=== PATIENT | female | born 1975 | race Caucasian/White ===

== ENCOUNTER → 2021-11-14 | Outpatient (CLI) | payer BC ==
[2021-11-15 11:38] LABS: Pineapple IgE <0.10 kU/L (<0.10); Pineapple IgE Class CLASS 0
[2021-11-15 15:05] LABS: Peanut IgE <0.10 kU/L; Soybean IgE <0.10 kU/L
== END | disposition home or self-care (01) ==
LOC: LABWHC1 13:31
PROVIDERS: ATTEND Allergy & Immunology
DX: T78.3XXA Angioneurotic edema, initial encounter (principal)
CPT/HCPCS: 36415; 86003

== ENCOUNTER → 2024-06-01 | Outpatient (CLI) | payer BC ==
[2024-06-01 14:52] VITALS: BP 159/91; PULSE 76; RESP 16; TEMP 98
--- NOTE | 2024-06-01 15:14 | P.SLEEP ---
History of Present Illness H&P Date: 06/01/24 Chief Complaint: TOM This is a 48-year-old female patient was referred to me due to concerns of sleep apnea. The patient was having some palpitations and she has undergone a cardiac workup with Dr. Mckeon and following that the patient was referred to me for sleep apnea evaluation. She has excessive fatigue and daytime sleepiness and her current Collins score is at 17 out of 24. She is raising 2 children, both have special needs and those children are autistic and they are severely impaired. As such, she has to occasionally get up in the middle of the night and at times severe needs. She tries to go to bed at around 11 PM and she wakes up at 6:30 AM in the morning. She is exhausted and tired throughout the day. 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 She feels excessively fatigued and sleepy during those meetings. She does not fall asleep during the day. She does not fall asleep while driving. She struggles to keep herself awake. No sleep paralysis. No hallucinations. No cataplexy. He drinks 30 ounces tea and Coca-Cola. No caffeine intake. No substance abuse. No head trauma. No stroke. No congestion heart failure. She has hypertension and she is currently on a combination of Toprol and losartan. No nightmares. No anxiety or depression. No restlessness in lower extremities. No sleepwalking. No sleep talking. No grinding. No nighttime chest pain or shortness of breath. She has history of snoring. Denies waking up choking and gasping for air. No previous sleep apnea evaluation. Review of Systems Constitutional: Reports daytime sleepiness, Reports fatigue, Reports weight gain Eyes: denies as per HPI, denies blurred vision, denies bulging eye, denies decreased vision, denies diplopia, denies discharge, denies dry eye, denies irritation, denies itching, denies pain, denies photophobia, denies loss of peripheral vision, denies loss of vision, denies tunnel vision/blind spots Ears: deny: decreased hearing, ear discharge, earache, tinnitus Ears, nose, mouth and throat: Reports as per HPI Breasts: absent: as per HPI, change in shape, gynecomastia, masses, nipple discharge, pain, skin changes, swelling Breasts: Reports as per HPI Cardiovascular: Reports as per HPI Respiratory: Reports snoring Gastrointestinal: Reports as per HPI Genitourinary: Reports as per HPI Menstruation: Reports as per HPI Musculoskeletal: Reports as per HPI Musculoskeletal: absent: ankle pain, ankle stiffness, ankle swelling, as per HPI, elbow pain, elbow stiffness, elbow swelling, foot pain, foot stiffness, foot swelling, hand pain, hand stiffness, hand swelling, hip pain, hip stiffness, hip swelling, knee pain, knee stiffness, knee swelling, shoulder pain, shoulder stiffness, shoulder swelling, wrist pain, wrist stiffness, wrist swelling Integumentary: Reports as per HPI Neurological: Reports as per HPI Psychiatric: Reports as per HPI, Reports sleep disturbances Endocrine: Reports as per HPI, Reports fatigue Hematologic/Lymphatic: Reports as per HPI Allergic/Immunologic: Reports as per HPI Past Medical History Past Medical History: Asthma, Hypertension Additional Past Medical History / Comment(s): Sinus headaches History of Any Multi-Drug Resistant Organisms: None Reported Past Surgical History: Orthopedic Surgery Additional Past Surgical History / Comment(s): laproscopy for IVF Past Anesthesia/Blood Transfusion Reactions: No Reported Reaction, Motion Sickness Past Psychological History: No Psychological Hx Reported Smoking Status: Never smoker Past Alcohol Use History: None Reported Past Drug Use History: None Reported - Past Family History Father Family Medical History: CVA/TIA, Neurologic Disorder Additional Family Medical History / Comment(s): parkinson Mother Family Medical History: Cancer, Congestive Heart Failure (CHF), Diabetes Mellitus, Hypertension, Rheumatoid Arthritis (RA) Brother(s) Family Medical History: Diabetes Mellitus, Hypertension, Thyroid Disorder Sister(s) Family Medical History: Hypertension Additional Family Medical History / Comment(s): restless legs Medications and Allergies Home Medications Medication Instructions Recorded Confirmed Type Losartan Potassium 100 mg PO DAILY 06/01/24 06/01/24 History Metoprolol Succinate (ER) [Toprol 5 mg PO DAILY 06/01/24 06/01/24 History Xl] Physical Exam Vitals: Vital Signs Temp Pulse Resp BP Pulse Ox 06/01/24 14:48 98.0 F 76 16 159/91 96 Intake and Output 06/01/24 06/01/24 06/01/24 06:59 14:59 22:59 Other: Weight 147.871 kg Patient is morbidly obese with a body mass index of 52.6. The patient appeared well nourished and normally developed. Vital signs as documented. Head exam is unremarkable. No scleral icterus or corneal arcus noted. Neck is without jugular venous distension, thyromegaly, or carotid bruits. Carotid upstrokes are brisk bilaterally. The patient is a Mallampati class IV with significant crowding of the posterior oropharynx. Lungs are clear to auscultation and percussion. Cardiac exam reveals the PMI to be normally sized and situated. Rhythm is regular. First and second heart sounds normal. No murmurs, rubs or gallops. Abdominal exam reveals normal bowel sounds, no masses, no organomegaly and no aortic enlargement. The abdominal organs cannot be accurately palpated due to her morbid obesity. Extremities are nonedematous and both femoral and pedal pulses are normal. Examination of the skin revealed no evidence of significant rashes, suspicious appearing nevi or other concerning lesions. Neurologically, the patient is awake and alert and the patient does not have any focal neurological deficit. Cranial nerves are essentially intact. Assessment and Plan Plan: Chronic hypersomnia with an Collins score of 17, high clinical suspicion for obstructive sleep apnea. Snoring Sleep fragmentation Mallampati class IV with significant crowding of posterior pharynx Hypertension Palpitations, currently on beta-blockers Plan High clinical suspicion for obstructive sleep apnea. Proceed with a home sleep study to establish a diagnosis. Following that, the patient would likely need his CPAP titration in preparation for CPAP therapy show the diagnosis of sleep apnea is confirmed. Encourage weight loss. Maintain good sleep hygiene measures. Will continue to follow. Sleep Note - Sleep Data ESS Total: 17 - Sleep Note Sleep Note: Temperature: 98.0 F Pulse Rate: 76 Respiratory Rate: 16 Blood Pressure: 159/91 SpO2: 96 Height: 5 ft 6 in Weight: 147.871 kg BMI: Neck Circumference: 18.5
== END ==
LOC: 3 N SLEEP 14:15
PROVIDERS: ATTEND Internal Medicine Critical Care Medicine
DX: R06.83 Snoring (principal); G47.10 Hypersomnia, unspecified; G47.8 Other sleep disorders; I10 Essential (primary) hypertension; R00.2 Palpitations; J39.2 Other diseases of pharynx; Z79.899 Other long term (current) drug therapy
CPT/HCPCS: 99211

== ENCOUNTER → 2024-06-03 | Outpatient (CLI) | payer BC ==
--- NOTE | 2024-06-20 23:10 | P.PCN ---
Date of Procedure: 06/01/24 Operative Findings: Home sleep study report Date of service is 06/01/2024 Present history This is a 48-year-old female patient was referred to me due to concerns of sleep apnea. The patient was having some palpitations and she has undergone a cardiac workup with Dr. Mckeon and following that the patient was referred to me for sleep apnea evaluation. She has excessive fatigue and daytime sleepiness and her current Carlton score is at 17 out of 24. She is raising 2 children, both have special needs and those children are autistic and they are severely impaired. As such, she has to occasionally get up in the middle of the night and at times severe needs. She tries to go to bed at around 11 PM and she wakes up at 6:30 AM in the morning. She is exhausted and tired throughout the day. 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 She feels excessively fatigued and sleepy during those meetings. She does not fall asleep during the day. She does not fall asleep while driving. She struggles to keep herself awake. No sleep paralysis. No hallucinations. No cataplexy. He drinks 30 ounces tea and Coca-Cola. No caffeine intake. No substance abuse. No head trauma. No stroke. No congestion heart failure. She has hypertension and she is currently on a combination of Toprol and losartan. No nightmares. No anxiety or depression. No restlessness in lower extremities. No sleepwalking. No sleep talking. No grinding. No nighttime chest pain or shortness of breath. She has history of snoring. Denies waking up choking and gasping for air. No previous sleep apnea evaluation. Physical findings patient has a body mass index of 52.6, Carlton score of 17 Technical description The [employer] system was used to complete his home sleep study. This is a type III home sleep study. The total recording duration was 7 hours and 20 minutes. The study started 12:19 AM and ended at 7:40 AM. There was a total of 7 hours and 8 minutes of flow monitoring and 7 hours and 9 minutes of oxygen saturation monitoring. This was an adequate study. Results Respiratory evaluation showed a total of 106 obstructive apneas and 172 obstructive hypopneas and the resulting AHI was 38.9 consistent with severe obstructive sleep apnea. The central apnea index was 0.3 Oxygenation analysis The baseline pulse ox while awake was 98%, average pulse ox during sleep was 93% with a minimum pulse ox of 75% and the patient spent approximately 31 minutes of sleep time below pulse ox of 89% Cardiac summary The average heart rate was 68 with a minimum heart rate of 54 and a maximum heart rate of 106 Assessment Severe TOM with an AHI of 38.9 Nocturnal oxygen saturation secondary to obstructive sleep apnea with a minimum pulse ox of 75% Chronic hypersomnia with an Carlton score of 17 Snoring Sleep fragmentation Mallampati class IV with significant crowding of posterior pharynx Hypertension Palpitations, currently on beta-blockers Plan The patient would likely need his CPAP titration in preparation for CPAP th erapy, the patient will be asked to come into the sleep center to undergo a CPAP titration. Encourage weight loss. Maintain good sleep hygiene measures. Will continue to follow.
== END ==
LOC: 3 N SLEEP 17:24
PROVIDERS: ATTEND Internal Medicine Critical Care Medicine
DX: G47.33 Obstructive sleep apnea (adult) (pediatric) (principal); G47.10 Hypersomnia, unspecified; I10 Essential (primary) hypertension; G47.36 Sleep related hypoventilation in conditions classified elsewhere; R00.2 Palpitations; Z79.899 Other long term (current) drug therapy

== ENCOUNTER 2024-09-12 19:51 | Outpatient (CLI) | payer BC ==
--- NOTE | 2024-09-16 19:17 | P.PCN ---
Date of Procedure: 09/12/24 Operative Findings: Operative Findings: Franco CPAP titration study Present history This is a 48-year-old female patient was referred to me due to concerns of sleep apnea. The patient was having some palpitations and she has undergone a cardiac workup with Dr. Mckeon and following that the patient was referred to me for sleep apnea evaluation. She has excessive fatigue and daytime sleepiness and her current Opelika score is at 17 out of 24. The patient underwent a home sleep study and the patient was found to have severe obstructive sleep apnea with an AHI of 38.9. Based on that, the patient is coming into the sleep center to undergo a CPAP titration study. Physical findings patient has a body mass index of 52.6, Opelika score of 17 Technical description The patient was studied using a standard complex polysomnography protocol that included recording of the Lead II EKG, Central, occipital and frontal EEG, right and left outer canthus EOG, submental EMG, right and left anterior tibialis EMG, respiratory airflow by thermocouple and or pressure/flow transducer, respiratory efforts by abdominal and thoracic PVDF belts, oxygen saturation by cable oximetry. Position by observation synchronized the PSG. Equipment used: [employer]. Stepwise CPAP titration was done to eliminate all obstructive respiratory events Sleep characteristics The total recording duration was 451.5 minutes. The total sleep time was 230.0 minutes. The wake after sleep onset time was 51.5 minutes. The overall sleep efficiency was 50.9%. Latency to sleep onset was 170 minutes. There was a total of 19.6% REM sleep, with a REM sleep latency of 86.5. There was also 5.2% stage I sleep, 75.2% stage II sleep, 0% stage III sleep. The total arousal index was 5.0 Results CPAP titration was started initially at a pressure of 5 cm of water and the pressure was very increased by 1cm to reach a maximum CPAP pressure of 9 cm of water. This was successful titration. All sleep stages were encountered. The patient was studied in a supine and nonsupine body position. The patient was also studied in all sleep stages including REM. Obstructive respiratory events were all eliminated and the patient was able to maintain saturation above 90% specially target CPAP pressures of 8 and 9 cm of water. No significant desaturation encountered. Oxygenation analysis The patient's oxygenation improved with CPAP therapy and the patient was able to maintain saturation above 90% Sleep continuity summary The patient had a total of 19 arousals with an index of 5.0. Respiratory arousal index was 0.3 Periodic limb movements The patient encountered a total of 229 periodic limb movement activity with an index of 59.7. The patient also had 1 periodic limb movement with arousal with an index of 0.3 Cardiac summary The average heart rate was 86 with a minimum heart rate of 77 and a maximum heart rate of 91 Assessment Severe TOM with an AHI of 38.9, the patient underwent a successful CPAP titration. Oxygenation improved and there was complete elimination of the obs tructive respiratory events Chronic hypersomnia with an Opelika score of 17 Obesity with a BMI of 52.6 Sleep fragmentation, improved with CPAP therapy The patient delayed sleep onset affecting the overall efficiency which essentially dropped down to 50.9% during this current study Hypertension Palpitations, currently on beta-blockers Plan The patient will be started on CPAP therapy with a CPAP pressure of 9 cm of water and C-Flex of 3. The patient will be offered the AirFit F20 medium size fullface mask. The patient will see me back in office in 30 to 90 days for a compliancy check and the appropriate adjustments will be done accordingly. Encourage weight loss. Maintain good sleep hygiene measures. Will continue to follow.
== END 2024-09-13 05:34 | disposition home or self-care (01) ==
LOC: 3 N SLEEP 19:51
PROVIDERS: ATTEND Internal Medicine Critical Care Medicine
DX: G47.33 Obstructive sleep apnea (adult) (pediatric) (principal); G47.10 Hypersomnia, unspecified; E66.9 Obesity, unspecified; I10 Essential (primary) hypertension; R00.2 Palpitations; G47.8 Other sleep disorders; Z68.43 Body mass index [BMI] 50.0-59.9, adult; Z79.899 Other long term (current) drug therapy
CPT/HCPCS: 95811

== ENCOUNTER → 2024-09-22 | Outpatient (CLI) | payer BC ==
--- NOTE | 2024-10-01 12:20 | MM ---
Reason for Exam: Screening (asymptomatic). Last mammogram was performed 7 year(s) and 10 month(s) ago. Patient History: Menarche at age 13. First Full-Term at age 27. Premenopausal. Patient has history of breast feeding. Last menstrual period: 09/08/2024 Risk Values: Jaylyn 5 year model risk: 0.9%. NCI Lifetime model risk: 9.2%. Prior Study Comparison: 07/05/2015 Bilateral Screening Mammogram, [facility]. 07/20/2015 Left Diagnostic Mammogram, [facility]. 12/09/2016 Bilateral Screening Mammogram, [facility]. Tissue Density: The breasts are almost entirely fatty. Findings: Analyzed By CAD. Right breast: There is no suspicious group of microcalcifications or new suspicious mass. Left breast: There is no suspicious group of microcalcifications or new suspicious mass. Overall Assessment: Negative, BI-RAD 1 Management: Screening Mammogram of both breasts in [address] [facility] will attempt to contact patient to return for supplemental views and ultrasound if indicated. Patient should continue monthly self-breast exams. A clinical breast exam by your physician is recommended on an annual basis. This exam should not preclude additional follow-up of suspicious palpable abnormalities. Note on Jaylyn scores and lifetime risk: 1. A Jaylyn score greater than 3% is considered moderate risk. If this is the case, consider specialist referral to assess eligibility for a risk reducing agent. 2. If overall lifetime risk for the development of breast cancer is 20% or higher, the patient may qualify for future screening with alternating mammogram and breast MRI. [facility], , 10/01/2024 12:16 PM. Electronically signed and approved by: Ian Castillo DO
== END | disposition home or self-care (01) ==
LOC: RADMAMWWP 12:57
PROVIDERS: ATTEND Internal Medicine
DX: Z12.31 Encounter for screening mammogram for malignant neoplasm of breast (principal)
CPT/HCPCS: 77063; 77067